=== PATIENT | male | born 1985 | race Caucasian/White ===

== ENCOUNTER 2022-05-03 11:40 | Emergency (ER) | payer MEDICAID, OTHER ==
[~2022-05-03] VITALS: Ht 177.8 cm; Wt 81.8 kg
[2022-05-03 11:44] VITALS: BP 134/79
[2022-05-03] MEDS ORDERED: BACL-11 PO (13:37)
[2022-05-03] MEDS ORDERED: IBUP-1984 PO (13:37)
== END 2022-05-03 14:07 | disposition home or self-care (01) ==
LOC: ER 11:41
DX: M62.838 Other muscle spasm (principal); M25.512 Pain in left shoulder; M54.6 Pain in thoracic spine; R20.2 Paresthesia of skin; Z79.899 Other long term (current) drug therapy
CPT/HCPCS: 99283